=== PATIENT | male | born 1990 | race Asian ===

== ENCOUNTER 2017-02-20 16:51 | Emergency (ER) | payer OTHER ==
[~2017-02-20] VITALS: Ht 182.9 cm; Wt 77.3 kg
[2017-02-20] MEDS ORDERED: CEFTAROLINE 600 MG/D5W 250 ML IV ONE (20:15)
[2017-02-20] MEDS ORDERED: KETOROLAC TROMETHAMINE 30 MG/ML VIAL IVP ONE (20:15)
[2017-02-20 20:44] LABS: BASOPHILS % (AUTO) 0.2 % (0.0-2.0); EOSINOPHILS % (AUTO) 0.5 % (1.0-6.0); HEMATOCRIT 46.6 % (41-53); HEMOGLOBIN 16.2 g/dL (13.5-17.5); LYMPHOCYTES % (AUTO) 15.3 % (22.0-44.0); MEAN CORPUSCULAR HEMOGLOBIN 31.7 pg (26.0-34.0); MEAN CORPUSCULAR HGB CONC 34.8 G/dL (31.0-37.0); MEAN CORPUSCULAR VOLUME 91 fL (80-100); MONOCYTES # (AUTO) 0.6 K/uL (0.1-1.0); MONOCYTES % (AUTO) 4.5 % (2.0-9.0); NEUTROPHILS # (AUTO) 10.3 K/uL (1.8-7.7); NEUTROPHILS % (AUTO) 79.5 % (40.0-70.0); PLATELET COUNT (AUTO) 216 K/uL (150-450); RED BLOOD CELL COUNT(AUTO) 5.12 MIL/uL (4.50-5.90); RED CELL DISTRIBUTION WIDTH 12.9 % (11.5-14.5)
[2017-02-20 20:56] LABS: ANION GAP 8 mmol/L (8-16); CALCIUM, TOTAL 9.2 mg/dL (8.8-10.5); CARBON DIOXIDE 26 mmol/L (22-29); CHLORIDE 99 mmol/L (98-107); CREATININE 0.97 mg/dL (0.60-1.30); GLOMERULAR FILTR. RATE CALC > 60 mL/min (>60); POTASSIUM 4.1 mmol/L (3.5-5.1); SODIUM SERUM 133 mmol/L (136-145); UREA NITROGEN, BLOOD 15 mg/dL (7-18)
[2017-02-20 21:02] LABS: ALANINE AMINOTRANSFERASE 38 U/L (12-78); ALBUMIN 4.1 g/dL (3.4-5.0); ASPARTATE AMINOTRANSFERASE 17 U/L (15-37); BILIRUBIN,TOTAL 0.6 mg/dL (0.1-1.0); TOTAL PROTEIN, SERUM 8.7 g/dL (6.4-8.2)
[2017-02-20 21:08] VITALS: BP 18/78
== END 2017-02-20 22:30 | disposition home or self-care (01) ==
LOC: EMS 16:52
DX: T65.811A Toxic effect of latex, accidental (unintentional), initial encounter (principal); L03.113 Cellulitis of right upper limb; L03.114 Cellulitis of left upper limb; R21 Rash and other nonspecific skin eruption; F17.210 Nicotine dependence, cigarettes, uncomplicated; Z91.040 Latex allergy status; Y92.89 Other specified places as the place of occurrence of the external cause
CPT/HCPCS: 36415; 71020; 80053; 83605; 85025; 87040; 93005; 96365; 96375; 99285; J0712; J1885

== ENCOUNTER 2021-11-04 15:11 | Emergency (ER) | payer BC, OTHER ==
[~2021-11-04] VITALS: Ht 175.3 cm; Wt 75.0 kg
[~2021-11-04 15:11] MED LIST: CLIN-26 PO
[2021-11-04 15:30] VITALS: BP 136/83
[2021-11-04] MEDS ORDERED: PRED-554 PO (16:26)
[2021-11-04] MEDS ORDERED: TRI115O TP (16:27)
[2021-11-04] MEDS ORDERED: DEXAMETHASONE SOD PHOS 4 MG/ML 5 ML VIAL IM ONE (16:30)
== END 2021-11-04 16:56 | disposition home or self-care (01) ==
LOC: EMS 15:11
DX: L23.89 Allergic contact dermatitis due to other agents (principal); R21 Rash and other nonspecific skin eruption; F17.210 Nicotine dependence, cigarettes, uncomplicated; Z91.040 Latex allergy status
CPT/HCPCS: 99283; 96372; J1100

== ENCOUNTER 2022-06-21 00:49 | Emergency (ER) | payer BC, OTHER ==
[~2022-06-21] VITALS: Ht 172.7 cm; Wt 75.0 kg
[~2022-06-21 00:49] MED LIST changes: -CLIN-26 PO; +PRED-554 PO; +TRI115O TP
[2022-06-21 00:50] VITALS: BP 148/91
[2022-06-21] MEDS ORDERED: PredniSONE 20 MG TABLET PO ONE (02:15)
[2022-06-21] MEDS ORDERED: DOXYCYCLINE HYCLATE 100 MG TABLET PO ONE (02:15)
[2022-06-21] MEDS ORDERED: DOXY-354 PO (02:22)
[2022-06-21] MEDS ORDERED: PRED-554 PO (02:22)
[2022-06-21] MEDS ORDERED: DIPH25CA85 PO (02:22)
== END 2022-06-21 02:31 | disposition home or self-care (01) ==
LOC: EMS 00:49
DX: L20.9 Atopic dermatitis, unspecified (principal); L30.9 Dermatitis, unspecified; F17.210 Nicotine dependence, cigarettes, uncomplicated
CPT/HCPCS: 99283; J7512

== ENCOUNTER 2022-06-29 23:14 | Emergency (ER) | payer BC ==
[~2022-06-29] VITALS: Ht 172.7 cm; Wt 75.0 kg
[~2022-06-29 23:14] MED LIST changes: +DIPH25CA85 PO; +DOXY-354 PO; -TRI115O TP
[2022-06-30] MEDS ORDERED: MethylPREDNISolone SOD SUCC 125 MG/2 ML VIAL IM ONE (00:15)
[2022-06-30] MEDS ORDERED: CEPHALEXIN MONOHYDRATE 500 MG CAPSULE PO ONE (00:30)
[2022-06-30] MEDS ORDERED: CEPH-558 PO (01:17)
[2022-06-30] MEDS ORDERED: PRED-554 PO (01:17)
[2022-06-30 02:00] VITALS: BP 135/79
== END 2022-06-30 03:39 | disposition home or self-care (01) ==
LOC: EMS 23:15
DX: R21 Rash and other nonspecific skin eruption (principal); F17.210 Nicotine dependence, cigarettes, uncomplicated; Z98.890 Other specified postprocedural states; Z91.040 Latex allergy status
CPT/HCPCS: 99283; 96372; J2930

== ENCOUNTER 2022-07-15 13:36 | Emergency (ER) | payer BC ==
[~2022-07-15] VITALS: Ht 167.6 cm; Wt 72.7 kg
[~2022-07-15 13:36] MED LIST changes: +CEPH-558 PO
[2022-07-15] MEDS ORDERED: TRIA15OI6 TP (16:05)
[2022-07-15 16:23] VITALS: BP 122/72
== END 2022-07-15 16:30 | disposition home or self-care (01) ==
LOC: EMS 13:55
DX: L30.1 Dyshidrosis [pompholyx] (principal); F17.210 Nicotine dependence, cigarettes, uncomplicated; Z98.890 Other specified postprocedural states
CPT/HCPCS: 99283; Z7502

== ENCOUNTER 2023-03-12 08:56 | Emergency (ER) | payer BC ==
[~2023-03-12] VITALS: Ht 175.3 cm; Wt 81.8 kg
[~2023-03-12 08:56] MED LIST changes: -CEPH-558 PO; -DIPH25CA85 PO; -DOXY-354 PO; -PRED-554 PO; +TRIA15OI6 TP
[2023-03-12 09:52] VITALS: TEMP 98.5
[2023-03-12] MEDS ORDERED: PRED-554 PO (11:03)
[2023-03-12] MEDS ORDERED: CLOB15OI17 TP (11:03)
[2023-03-12 11:15] VITALS: BP 130/81; PULSE 65; RESP 12
[2023-03-12] MEDS ORDERED: PredniSONE 20 MG TABLET PO ONE (11:15)
== END 2023-03-12 11:25 | disposition home or self-care (01) ==
LOC: EMS 08:56
DX: L30.1 Dyshidrosis [pompholyx] (principal); F17.210 Nicotine dependence, cigarettes, uncomplicated; Z98.890 Other specified postprocedural states; Z91.040 Latex allergy status
CPT/HCPCS: 99283; J7512

== ENCOUNTER 2023-05-14 09:45 | Emergency (ER) | payer BC ==
[~2023-05-14] VITALS: Ht 175.3 cm; Wt 84.1 kg
[~2023-05-14 09:45] MED LIST changes: +CLOB15OI17 TP; +PRED-554 PO
[2023-05-14 10:06] VITALS: TEMP 97.9
[2023-05-14] MEDS ORDERED: PredniSONE 20 MG TABLET PO ONE (13:30)
[2023-05-14] MEDS ORDERED: DiphenhydrAMINE HCL 25 MG CAPSULE PO ONE (13:30)
[2023-05-14] MEDS ORDERED: PRED-554 PO (13:54)
[2023-05-14] MEDS ORDERED: DIPH25CA85 PO (13:54)
[2023-05-14 14:03] VITALS: BP 136/77; PULSE 70; RESP 16
== END 2023-05-14 14:07 | disposition home or self-care (01) ==
LOC: EMS 09:45
DX: T78.1XXA Other adverse food reactions, not elsewhere classified, initial encounter (principal); F17.210 Nicotine dependence, cigarettes, uncomplicated; Z98.890 Other specified postprocedural states; Z91.040 Latex allergy status; X58.XXXA Exposure to other specified factors, initial encounter
CPT/HCPCS: 99283; J7512

== ENCOUNTER 2023-06-01 08:14 | Emergency (ER) | payer BC ==
[~2023-06-01] VITALS: Ht 175.3 cm; Wt 100.0 kg
[~2023-06-01 08:14] MED LIST changes: +DIPH25CA85 PO
[2023-06-01 08:18] VITALS: BP 120/80; PULSE 88; RESP 18; TEMP 98.2
[2023-06-01] MEDS ORDERED: PRED-554 PO (08:29)
== END 2023-06-01 08:42 | disposition home or self-care (01) ==
LOC: EMS 08:21
DX: L25.9 Unspecified contact dermatitis, unspecified cause (principal); F17.210 Nicotine dependence, cigarettes, uncomplicated; Z98.890 Other specified postprocedural states; Z91.013 Allergy to seafood; Z91.040 Latex allergy status
CPT/HCPCS: 99283

== ENCOUNTER 2023-07-29 11:32 | Emergency (ER) | payer BC ==
[~2023-07-29] VITALS: Ht 175.3 cm; Wt 90.9 kg
[~2023-07-29 11:32] MED LIST changes: -CLOB15OI17 TP; -DIPH25CA85 PO; -TRIA15OI6 TP
[2023-07-29 11:50] VITALS: BP 123/83; PULSE 96; RESP 18; TEMP 98.2
[2023-07-29] MEDS: PredniSONE 20 MG TABLET PO ONE (14:19)
[2023-07-29] MEDS ORDERED: PRED-554 PO (14:59)
== END 2023-07-29 15:20 | disposition home or self-care (01) ==
LOC: EMS 11:32
DX: L30.8 Other specified dermatitis (principal); F17.210 Nicotine dependence, cigarettes, uncomplicated; Z98.890 Other specified postprocedural states; Z91.013 Allergy to seafood; Z91.040 Latex allergy status
CPT/HCPCS: 99283; J7512

== ENCOUNTER 2023-09-05 23:24 | Emergency (ER) | payer BC ==
[~2023-09-05] VITALS: Ht 175.3 cm; Wt 100.0 kg
[2023-09-05 23:27] VITALS: BP 109/72; PULSE 85; RESP 18; TEMP 97.9
[2023-09-05] MEDS: PredniSONE 20 MG TABLET PO ONE (23:46)
[2023-09-05] MEDS: DiphenhydrAMINE HCL 25 MG/10 ML SOLUTION UDCUP PO ONE (23:46)
[2023-09-05] MEDS ORDERED: PRED-554 PO (23:48)
[2023-09-05] MEDS ORDERED: DIPH25CA85 PO (23:48)
== END 2023-09-05 23:50 | disposition home or self-care (01) ==
LOC: EMS 23:25
DX: T78.40XA Allergy, unspecified, initial encounter (principal); F17.210 Nicotine dependence, cigarettes, uncomplicated; Z91.040 Latex allergy status; Z91.013 Allergy to seafood; X58.XXXA Exposure to other specified factors, initial encounter
CPT/HCPCS: 99283; J7512

== ENCOUNTER 2023-11-08 20:04 | Emergency (ER) | payer BC ==
[~2023-11-08] VITALS: Ht 175.3 cm; Wt 94.5 kg
[~2023-11-08 20:04] MED LIST changes: +DIPH25CA85 PO
[2023-11-08 20:33] VITALS: BP 144/86; PULSE 86; RESP 16
[2023-11-09] MEDS ORDERED: PRED-554 PO (00:36)
[2023-11-09] MEDS ORDERED: HYDR30CR3 TP (00:36)
[2023-11-09] MEDS: PredniSONE 20 MG TABLET PO ONE (00:49)
== END 2023-11-09 00:52 | disposition home or self-care (01) ==
LOC: EMS 20:04
DX: L30.1 Dyshidrosis [pompholyx] (principal); Z91.013 Allergy to seafood; Z91.040 Latex allergy status; Z79.899 Other long term (current) drug therapy
CPT/HCPCS: 99283; J7512